=== PATIENT | male | born 1950 | race Caucasian/White ===

== ENCOUNTER 2023-02-14 15:02 | Inpatient (IN) | payer MEDICARE ==
[~2023-02-14] VITALS: Ht 165.1 cm; Wt 79.3 kg
[2023-02-14] VITALS (346 sets, daily range): BP systolic 71–93; BP diastolic 47–65; PULSE 116–147; TEMP 98.4; O2SAT 81–100
--- NOTE | 2023-02-14 15:45 | NUR ---
Arrived via EMS; Alert and oriented upon arrival. HR 130 and appears to be sinus tach, and patient is hypotensive. Hospitalist notified. Will intiate a fluid bolus and if not effective will initiated levophed. Family at bedside and updated on current plan of care. Call light left within reach.
[2023-02-14 17:13] LABS: HEMOGLOBIN 12.7 g/dl (13.5-18.0); MEAN CELL VOLUME 89 fl (80.0-100.0); MEAN CORPUSCULAR HEMOGLOBIN 32 pg (27-31); MEAN CORPUSCULAR HGB CONC 36 g/dl (33.0-37.0); MEAN PLATELET VOLUME 8.8 fl (7.4-10.4); PLATELET COUNT 474 K/mm3 (130-400); RED BLOOD COUNT 3.94 M/mm3 (4.20-5.60); REDCELL DISTRIBUTION WIDTH-CV 13.2 % (11.5-14.5)
[2023-02-14 17:15] LABS: HEMATOCRIT 34.9 % (42.0-52.0)
[2023-02-14 17:39] LABS: BAND 27 % (0-10); LYMPHOCYTE 4 % (20.0-51.0); NEUTROPHILS 64 % (42.0-75.2); PLATELET ESTIMATE INCREASED (NORMAL)
[2023-02-14 17:45] LABS: CALCIUM 7.4 mg/dL (8.4-10.2); CREATININE, serum 0.7 mg/dL (0.72-1.25); POTASSIUM 3.1 mmol/L (3.5-4.5)
[2023-02-14 17:52] LABS: TROPONIN-I 0.024 ng/mL (0.00-0.033)
[2023-02-14] MEDS ORDERED: LIPITOR20 MG PO (18:16)
[2023-02-14] MEDS ORDERED: HYGROTON 2525 MG/TAB PO (18:17)
[2023-02-14] MEDS ORDERED: CLEOCIN HCL300 MG PO (18:19)
[2023-02-14] MEDS ORDERED: LOPRESSOR 550 MG/TAB PO (18:20)
[2023-02-14] MEDS ORDERED: FLOMAX 0.40.4 MG/CAP PO (18:21)
[2023-02-14] MEDS ORDERED: ASPIRIN 81M81 MG/TA2 PO (18:21)
[2023-02-14] MEDS ORDERED: TRELEGY ELLIPT1 EACH IH (18:22)
--- NOTE | 2023-02-14 20:00 | NUR ---
PT RETURNED FROM SURGERY AT 1945 AND PLACED ON VENTILATOR UPON ARRIVAL. DRIPS ASSESSED AND INITIATED PER ORDERS, ASSESSMENTS COMPLETED, AND CARE PLAN REVIEWED WITH FAMILY. BED IS IN LOWEST POSITION, CALL LIGHT WITHIN REACH AND ORIENTATION PROVIDED TO FAMILY WITH PLAN OF CARE. ALL QUESTIONS ANSWERED AT THIS TIME.
[2023-02-14 21:14] LABS: ARTERIAL BLD GAS O2 SATURATION 98.5 % (92-100); ARTERIAL BLD GAS TCO2 CT 20.2; ARTERIAL BLOOD GAS BASE EXCESS -3.8 (-2-2); ARTERIAL BLOOD GAS HCO3 19.3 meq/L (22-26); ARTERIAL BLOOD GAS PCO2 29.6 mmHg (35-45); ARTERIAL BLOOD GAS pH 7.43 (7.35-7.45)
[2023-02-14 21:16] LABS: ARTERIAL BLOOD GAS PO2 137.3 mmHg (80-100)
[2023-02-14 22:59] LABS: BASO # 0.1 K/mm3 (0.0-0.2); BASO % 0.4 % (0.0-2.0); EOS # 0.2 K/mm3 (0.0-0.7); EOS % 1.3 % (0.0-4.0); GRAN # 11.2 K/mm3 (1.4-6.5); GRAN % 82.8 % (42.2-75.2); HEMATOCRIT 39.9 % (42.0-52.0); HEMOGLOBIN 13.8 g/dl (13.5-18.0); LYMPH # 0.9 K/mm3 (1.2-3.4); LYMPH % 6.8 % (20.0-51.0); MEAN CELL VOLUME 92 fl (80.0-100.0); MEAN CORPUSCULAR HEMOGLOBIN 32 pg (27-31); MEAN CORPUSCULAR HGB CONC 35 g/dl (33.0-37.0); MEAN PLATELET VOLUME 9.1 fl (7.4-10.4); MONO # 1.1 K/mm3 (0.1-0.6); MONO % 8.4 % (1.7-9.3); PLATELET COUNT 462 K/mm3 (130-400); RED BLOOD COUNT 4.36 M/mm3 (4.20-5.60); REDCELL DISTRIBUTION WIDTH-CV 13.3 % (11.5-14.5)
[2023-02-14 23:12] LABS: CALCIUM 7.4 mg/dL (8.4-10.2); CREATININE, serum 0.71 mg/dL (0.72-1.25); MAGNESIUM 1.8 mg/dL (1.6-2.6); POTASSIUM 3.5 mmol/L (3.5-4.5)
[2023-02-15] VITALS (1003 sets, daily range): BP systolic 99–119; BP diastolic 60–85; PULSE 87–145; TEMP 97.7–99.4; O2SAT 93–100
--- NOTE | 2023-02-15 01:25 | NUR ---
PT TOLERATING VENT. TX GIVEN INLINE VIA AEROGEN.
--- NOTE | 2023-02-15 02:20 | NUR ---
PT AWAKE ON VENTILATOR. ORAL CARE PERFORMED. SXN'D OUT THICK WHITE MODERATE SECRETIONS THROUGH E[facility].
[2023-02-15 05:28] LABS: MEAN CELL VOLUME 93 fl (80.0-100.0); MEAN CORPUSCULAR HGB CONC 35 g/dl (33.0-37.0); MEAN PLATELET VOLUME 10.1 fl (7.4-10.4); PLATELET COUNT 389 K/mm3 (130-400); RED BLOOD COUNT 3.47 M/mm3 (4.20-5.60); REDCELL DISTRIBUTION WIDTH-CV 13.5 % (11.5-14.5)
[2023-02-15 05:34] LABS: HEMATOCRIT 32.2 % (42.0-52.0); MEAN CORPUSCULAR HEMOGLOBIN 32 pg (27-31)
[2023-02-15 05:35] LABS: ARTERIAL BLD GAS O2 SATURATION 98.2 % (92-100); ARTERIAL BLD GAS TCO2 CT 21.6; ARTERIAL BLOOD GAS BASE EXCESS -3.1 (-2-2); ARTERIAL BLOOD GAS HCO3 20.6 meq/L (22-26); ARTERIAL BLOOD GAS PCO2 32.6 mmHg (35-45); ARTERIAL BLOOD GAS PO2 100.7 mmHg (80-100); ARTERIAL BLOOD GAS pH 7.42 (7.35-7.45)
[2023-02-15 05:36] LABS: HEMOGLOBIN 11.2 g/dl (13.5-18.0)
[2023-02-15 05:49] LABS: ALBUMIN 2.1 gm/dL (3.4-4.8); BILIRUBIN,TOTAL 1.8 mg/dL (0.2-1.2); CALCIUM 6.9 mg/dL (8.4-10.2); CREATININE, serum 0.63 mg/dL (0.72-1.25); MAGNESIUM 1.7 mg/dL (1.6-2.6); PHOSPHOROUS 1.4 mg/dL (2.3-4.7); POTASSIUM 3.4 mmol/L (3.5-4.5); TOTAL PROTEIN 4.8 gm/dL (6.2-8.1)
[2023-02-15 06:12] LABS: BAND 42 % (0-10); LYMPHOCYTE 12 % (20.0-51.0); NEUTROPHILS 37 % (42.0-75.2)
[2023-02-15 06:13] LABS: BURR CELLS 1+; PLATELET ESTIMATE NORMAL (NORMAL)
--- NOTE | 2023-02-15 07:00 | NUR ---
Report recieved from ANTOLIN Duenas. Reviewed lab results and gtts currently infusing. Reviewed POC. Pt currently intubated and sedated. Levo and Vaso infusing. Will continue to monitor.
--- NOTE | 2023-02-15 10:07 | NUR ---
Initial visit; Patient resting, Joint Supervisor introduced herself to patient's , letting her know Spiritual Care is available. She said she didn't need anything at this time but thanked Joint Supervisor for stopping.
--- NOTE | 2023-02-15 12:39 | NUR ---
Changed levophed to double strenght concentration, continueing at 0.56mcg/kg/min. will continue to titrate as tolerated.
--- NOTE | 2023-02-15 13:46 | NUR ---
Humidifier Maintenance Worker met with Patient (on vent) and Significant other of 14 years at bedside to conduct Care Managment Assessment. Patient is reported to lives [place], [place] with his SO and is established with PCP through [facility]. Patient is reported to be established with Medicare [employer] for insurance. SO states that she is unaware if Patient has DPOAHC though his children would be his best familial points of contact. Patient is reported to have been experiancing weakness prior to admission though independent with ADL/IADLs.
--- NOTE | 2023-02-15 17:22 | NUR ---
Sedation vacation not preformed, pt on levo and vaso, wakes up and follows commands
--- NOTE | 2023-02-15 20:00 | NUR ---
PT RESTING IN BED AT THIS TIME. VENTILATOR SETTINGS AND DRIPS ARE REPORTED. PT ABLE TO RESPONG TO VERBAL STIMULI AND PRESENTS IN A CALM STATE. ASSESSMENTS COMPLETE, VSS WITH ELEVATED HR AND MEDICATION IN PLACE, BED IN LOW POSITION, CALL LIGHT WITHIN REACH. DR. RUELAS AT BEDSIDE AND REPORTS THE DRESSING IS CDI AND HE PLANS TO CHANGE THE ABDOMINAL DRESSING TOMORROW.
--- NOTE | 2023-02-15 23:35 | NUR ---
ORAL CARE NOT DONE AT THIS TIME. RN STATES HR RISES WITH STIMULATION.
[2023-02-16] VITALS (1054 sets, daily range): BP systolic 65–120; BP diastolic 50–82; PULSE 88–136; TEMP 97.6–98.8; O2SAT 15–100
--- NOTE | 2023-02-16 02:00 | NUR ---
CHANDANA RN NOTIFIED THIS RN OF HR CHANGE TO 140-150'S WITH ELEVATIONS UP TO 200'S. NOREEN, HOSPITALIST, NOTIFIED OF HR AND CRASH CART BROUGHT TO ROOM. MEDICATIONS AND PT STATUS ASSESSED. DRIPS TITRATED ACCORDINGLY. NOREEN AT BEDSIDE CONVERSING WITH MADHAV ON THE PHONE. LAB RESULTS REPORTED FROM LAB TO RN NA 115, CL 85. LABS RELAYED TO NOREEN. DUE TO GLUCOSE DISCREPENCY FROM FINGER POKE, LABS WERE REDRAWN. NOREEN ORDERED KOBE TO BE STARTED AT THIS TIME AND LEVO TO BE TITRATED OFF PER MAY. AWAITING ADDITIONAL ORDERS TO CONTROL HR.
[2023-02-16 02:13] LABS: BASO % 0.3 % (0.0-2.0); EOS # 0.1 K/mm3 (0.0-0.7); EOS % 0.5 % (0.0-4.0); GRAN # 8.7 K/mm3 (1.4-6.5); GRAN % 76.4 % (42.2-75.2); HEMOGLOBIN 10.4 g/dl (13.5-18.0); LYMPH # 1.2 K/mm3 (1.2-3.4); LYMPH % 10.8 % (20.0-51.0); MEAN CELL VOLUME 92 fl (80.0-100.0); MEAN CORPUSCULAR HEMOGLOBIN 32 pg (27-31); MEAN CORPUSCULAR HGB CONC 35 g/dl (33.0-37.0); MEAN PLATELET VOLUME 9.3 fl (7.4-10.4); MONO # 1.3 K/mm3 (0.1-0.6); MONO % 11.7 % (1.7-9.3); RED BLOOD COUNT 3.26 M/mm3 (4.20-5.60); REDCELL DISTRIBUTION WIDTH-CV 13.2 % (11.5-14.5)
[2023-02-16 02:15] LABS: HEMATOCRIT 29.9 % (42.0-52.0); PLATELET COUNT 285 K/mm3 (130-400)
[2023-02-16 02:31] LABS: ALBUMIN 1.7 gm/dL (3.4-4.8); BILIRUBIN,TOTAL 1.8 mg/dL (0.2-1.2); CALCIUM 6.4 mg/dL (8.4-10.2); CREATININE, serum 0.57 mg/dL (0.72-1.25); MAGNESIUM 1.4 mg/dL (1.6-2.6); PHOSPHOROUS 1.3 mg/dL (2.3-4.7); POTASSIUM 3.1 mmol/L (3.5-4.5); TOTAL PROTEIN 4.3 gm/dL (6.2-8.1)
[2023-02-16 03:15] LABS: BASO # 0.1 K/mm3 (0.0-0.2); BASO % 0.5 % (0.0-2.0); EOS # 0.1 K/mm3 (0.0-0.7); EOS % 0.7 % (0.0-4.0); GRAN # 8.9 K/mm3 (1.4-6.5); GRAN % 76.6 % (42.2-75.2); HEMOGLOBIN 11.1 g/dl (13.5-18.0); LYMPH # 1.2 K/mm3 (1.2-3.4); LYMPH % 10.5 % (20.0-51.0); MEAN CELL VOLUME 92 fl (80.0-100.0); MEAN CORPUSCULAR HEMOGLOBIN 32 pg (27-31); MEAN CORPUSCULAR HGB CONC 35 g/dl (33.0-37.0); MEAN PLATELET VOLUME 8.8 fl (7.4-10.4); MONO # 1.3 K/mm3 (0.1-0.6); MONO % 11.5 % (1.7-9.3); PLATELET COUNT 297 K/mm3 (130-400); RED BLOOD COUNT 3.48 M/mm3 (4.20-5.60); REDCELL DISTRIBUTION WIDTH-CV 13.3 % (11.5-14.5)
[2023-02-16 03:23] LABS: ALBUMIN 1.8 gm/dL (3.4-4.8); BILIRUBIN,TOTAL 1.9 mg/dL (0.2-1.2); CALCIUM 6.9 mg/dL (8.4-10.2); CREATININE, serum 0.54 mg/dL (0.72-1.25); MAGNESIUM 1.6 mg/dL (1.6-2.6); PHOSPHOROUS 1.4 mg/dL (2.3-4.7); POTASSIUM 3.3 mmol/L (3.5-4.5); TOTAL PROTEIN 4.6 gm/dL (6.2-8.1)
[2023-02-16 05:33] LABS: ARTERIAL BLD GAS O2 SATURATION 96.5 % (92-100); ARTERIAL BLD GAS TCO2 CT 21.6; ARTERIAL BLOOD GAS BASE EXCESS -4.1 (-2-2); ARTERIAL BLOOD GAS HCO3 20.5 meq/L (22-26); ARTERIAL BLOOD GAS PCO2 35.9 mmHg (35-45); ARTERIAL BLOOD GAS PO2 89.5 mmHg (80-100); ARTERIAL BLOOD GAS pH 7.38 (7.35-7.45)
--- NOTE | 2023-02-16 06:00 | NUR ---
THICK YELLOW SECRETIONS SXN'D FROM ETT.
--- NOTE | 2023-02-16 06:16 | NUR ---
MADHAV HYLTON, DR. VINCENT, CALLED TO CHECK ON PT STATUS. VITALS AND MEDICATIONS REVIEWED AT THIS TIME. NO ORDERS RECEIVED.
--- NOTE | 2023-02-16 07:26 | NUR ---
Report received from ANTOLIN Duenas. Reveiwed overnight events. Pt HR currently in the 90s and sinus. Reviewed IV gtts infusing. Pt on multiple pressors. Fernando in place, free of kinks and twists. Pt remains sedated on ventilator. Labs reviewed. Will continue with POC.
--- NOTE | 2023-02-16 13:00 | NUR ---
Lots of family at bedside and in and out of room. Lots of education about medications and what we are doing for patient. Questions answered, Dr. Hackett visitied with family and pt made a DNR. Plan is to wait for a few more family members to get here and then will transition to comfort measures. Pt remains on multiple pressors for blood pressure. Minimal urine output noted. Sedation decreased as tolerated. Will continue with POC and provide care for family as needed.
--- NOTE | 2023-02-16 14:01 | NUR ---
[facility] notified of family decision for comfort care referral number [phone], we are to call back with cardiac time of .
--- NOTE | 2023-02-16 17:31 | NUR ---
Sedation vaction not performed at this time- family planning on transitioning to comfort care.
--- NOTE | 2023-02-16 17:51 | NUR ---
PT EXTUBATED PER COMFORT CARE ORDERS
--- NOTE | 2023-02-16 17:51 | NUR ---
Pt family came out and stated they were ready to proceed with comfort measures. Orders placed from [facility] by Dr. Hackett. Pt premedicated with ativan and morphine. Pt extubated at 1747. Pt surrounded by family. Will continue to offer support
--- NOTE | 2023-02-16 18:45 | NUR ---
[facility]NN notified with TOB - [id number], referral number remains the same [phone]. Patient is not a candidate for donation, we may release the body to the home when family has chosen one.
--- NOTE | 2023-02-16 18:46 | NUR ---
Time of at 1834. Pronounced by this RN and ANTOLIN Nj. roller printing supervisor notified and JESSEE Reyes notified of time of . Family in and out of room to say final goodbyes. Support provided as needed.
--- NOTE | 2023-02-16 20:57 | NUR ---
Spoke with Earnest from [facility] to have patient picked up.
--- NOTE | 2023-02-16 22:15 | NUR ---
GRACIELA HER TO REMOVE VILLARREAL'S REMAINS ALL IV HAVE BEEN REMOVED AND BANDAGED/ PICC MEASURES AT 46 CM/ BRITO REMOVED PATIENT THEN DISCHARGED
== END 2023-02-16 22:35 | disposition expired | DRG 853 ==
LOC: ICU 15:02
PROVIDERS: Internal Medicine; Nurse Practitioner Family; Surgery; ADMIT Internal Medicine
PROC: 5A1945Z Respiratory Ventilation, 24-96 Consecutive Hours (ICD-10-PCS; 2023-02-14)
PROC: 0BH17EZ Insertion of Endotracheal Airway into Trachea, Via Natural or Artificial Opening (ICD-10-PCS; 2023-02-14)
PROC: 0DTF0ZZ Resection of Right Large Intestine, Open Approach (ICD-10-PCS; principal; 2023-02-14 18:30)
PROC: 0DNL0ZZ Release Transverse Colon, Open Approach (ICD-10-PCS; 2023-02-14 18:30)
PROC: 02HV33Z Insertion of Infusion Device into Superior Vena Cava, Percutaneous Approach (ICD-10-PCS; 2023-02-15)
DX: A41.9 Sepsis, unspecified organism (principal); K35.32 Acute appendicitis with perforation, localized peritonitis, and gangrene, without abscess; R65.21 Severe sepsis with septic shock; C18.6 Malignant neoplasm of descending colon; E87.1 Hypo-osmolality and hyponatremia; K56.609 Unspecified intestinal obstruction, unspecified as to partial versus complete obstruction; E44.0 Moderate protein-calorie malnutrition; Z66 Do not resuscitate; Z51.5 Encounter for palliative care; I47.10 Supraventricular tachycardia, unspecified; K91.89 Other postprocedural complications and disorders of digestive system; K56.7 Ileus, unspecified; J90 Pleural effusion, not elsewhere classified; E87.6 Hypokalemia; E83.42 Hypomagnesemia; E83.39 Other disorders of phosphorus metabolism; R73.9 Hyperglycemia, unspecified; J44.9 Chronic obstructive pulmonary disease, unspecified; I10 Essential (primary) hypertension; E78.5 Hyperlipidemia, unspecified; N40.0 Benign prostatic hyperplasia without lower urinary tract symptoms; I48.0 Paroxysmal atrial fibrillation; H91.90 Unspecified hearing loss, unspecified ear; K66.8 Other specified disorders of peritoneum; F17.210 Nicotine dependence, cigarettes, uncomplicated; F10.10 Alcohol abuse, uncomplicated; I95.9 Hypotension, unspecified; Z85.51 Personal history of malignant neoplasm of bladder; Z90.49 Acquired absence of other specified parts of digestive tract; Z88.0 Allergy status to penicillin; Z79.82 Long term (current) use of aspirin; Z79.899 Other long term (current) drug therapy; Z68.25 Body mass index [BMI] 25.0-25.9, adult
CPT/HCPCS: A4314; C1751; C9113; J0282; J0330; J0457; J0690; J1450; J1815; J1836; J1956; J2060; J2250; J2270; J2371; J2598; J2704; J3010; J3475; J3480; J7030; J7050; J7060; J7120; Q3014